=== PATIENT | female | born 2000 | race Caucasian/White ===

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

== ENCOUNTER 2020-07-27 16:58 | Emergency (ER) | payer OTHER, SELFPAY ==
[2020-07-27 17:13] VITALS: BP 110/60; PULSE 68; RESP 16; TEMP 36.6; O2SAT 94
[2020-07-27] MEDS: DEXAMETHASONE 4 MG TABLET 8 MG PO (17:33)
[2020-07-27 17:34] VITALS: PULSE 115; RESP 20; O2SAT 99
[2020-07-27] MEDS: ALBUTEROL SULFATE NEB 2.5 MG/3 ML INH 5 MG INHALATION (17:34)
--- NOTE | 2020-07-27 17:47 | ED.GENADULT ---
HPI - General Adult General Chief complaint: Unspecified Stated complaint: trouble breathing Time Seen by Provider: 07/27/20 17:25 Source: patient Mode of arrival: ambulatory Limitations: no limitations History of Present Illness HPI narrative: Patient comes in complaining of dyspnea related to her asthma. She has been mildly short of breath with a dry cough for the last 5 days. She has had no fever or chills. She has had no chest pain. She has been using her inhaler more than normal. Nothing has decreased the cough at home. no modifying factors or associated signs / symptoms. Onset (ago): day(s) Severity: moderate Quality: sharp Pain Consistency: intermittent Relieving factors: none Exacerbating factors: none Associated symptoms: denies other symptoms Treatments prior to arrival: NSAID Related Data Allergies Allergy/AdvReac Type Severity Reaction Status Date / Time Penicillins Allergy Unknown Verified 07/27/20 17:36 Review of Systems Constitutional: Constitutional: Reports no additional constitutional complaints Eyes: Eyes: Reports no additional eye complaints ENT: Reports system reviewed and no additional complaints, except as documented Cardiovascular: Cardiovascular: Reports no additional cardiovascular complaints Respiratory: Respiratory: Reports no additional respiratory complaints Gastrointestinal: Gastrointestinal: Reports no additional gastrointestinal complaints Genitourinary: Genitourinary: Reports no additional female genitourinary complaints Musculoskeletal: Musculoskeletal: Reports no additional musculoskeletal complaints Integumentary/Breasts: Skin/Breast: Reports system reviewed and no additional complaints, except as docu Neurologic: Reports system reviewed and no additional complaints, except as documented Psychiatric: Psychiatric: Reports no additional psychiatric complaints Endocrine: Endocrine: Reports no additional endocrine complaints Hematologic/Lymphatic: Hematologic/Lymphatic: Reports no additional hematologic/lymphatic complaints Allergic/Immunologic: Allergic/Immunologic: Reports no additional allergic/immunologic complaints [facility] Past Medical History Medical History Asthma Surgical History Surgical History (Updated 07/28/20 @ 03:36 by Jordan Llamas MD) No significant past surgical history Family History Family History (Updated 07/28/20 @ 03:37 by Jordan Llamas MD) Mother No significant family history Social History Social History (Updated 07/28/20 @ 03:37 by Jordan Llamas MD) Tobacco type: e-cigarettes/vaping Alcohol intake: never Substance use: never Exam Const: General: healthy appearing and no acute distress Orientation/consciousness: patient oriented x3 HENMT: Head: normal to inspection Ears: external ears normal and TM's normal bilaterally Face and sinus: normal facial exam Mouth: Yes Normal oral and palatal mucosa present Throat: posterior oropharynx normal Eyes: Conjunctivae: conjunctivae normal Neck: Neck: normal visual inspection Chest: Chest palpation & inspection: normal inspection of the chest Resp: Effort & Inspection: normal respiratory effort Auscultation: clear to auscultation bilaterally Cardio: Rate: regular rate Rhythm: regular rhythm GI: GI Palp: Yes Soft to palpation (nontender) : General: Yes no CVA tenderness Skin: General skin exam: normal color Neuro: General: patient oriented x3 and moves all extremities Extrem: General: normal to inspection Psych: Appearance: grossly normal Mental Status: mental status grossly normal Course Course Emergency Course: labs and a chest x ray were done. she was sent home with albuterol prn by nebulizer and a script for a nebulizer Vital Signs Vital signs: Vital Signs Temperature 36.6 C 07/27/20 17:13 Pulse Rate 68 07/27/20 17:13 Respiratory Rate 16 07/27/20 17:13 Blood Pressure 110/60
[2020-07-27 17:48] VITALS: PULSE 133; RESP 20; O2SAT 98
[2020-07-27 18:20] VITALS: BP 112/64; PULSE 123; RESP 20; TEMP 36.7; O2SAT 99
== END 2020-07-27 18:25 | disposition home or self-care (01) ==
PROVIDERS: Emergency Provider Emergency Medicine; PCP Physician Assistant
DX: J45.909 Unspecified asthma, uncomplicated (principal); F17.290 Nicotine dependence, other tobacco product, uncomplicated
CPT/HCPCS: 99283; J8540

== ENCOUNTER 2020-10-03 17:57 | Outpatient (CLI) | payer OTHER, SELFPAY | END 2020-10-03 17:58 | disposition home or self-care (01) | PROVIDERS: PCP Emergency Medicine; Visit Provider Emergency Medicine | DX: Z02.83 Encounter for blood-alcohol and blood-drug test (principal) | CPT/HCPCS: 99199 ==

== ENCOUNTER 2022-06-07 09:55 | Emergency (ER) | payer OTHER, SELFPAY ==
[2022-06-07 09:55] VITALS: BP 130/73; PULSE 91; RESP 18; TEMP 36.7; O2SAT 98
[2022-06-07 10:05] VITALS: BP 130/73; PULSE 91; RESP 18; TEMP 36.7; O2SAT 98
--- NOTE | 2022-06-07 10:08 | ED.URI ---
HPI - URI/Sore Throat General Chief Complaint: Upper Respiratory Infection Stated Complaint: headache/sore throat/short of breath Time Seen by Provider: 06/07/22 10:08 Source: patient Mode of arrival: ambulatory History of Present Illness HPI Narrative: 22-year-old female with a history of asthma presents to the ER with -- headache -- sore throat -- wheezing and shortness of breath -- cough she is here to get a prescription for a nebulizer machine MD elicited complaint: fever, cough and sore throat Pertinent past history: asthma Onset (ago): day(s) ( symptoms started yesterday) Able to tolerate fluids by mouth: Yes Exacerbating factors: nothing Relieving factors: nothing Associated symptoms: fever Treatments prior to arrival: none Related Data Home Medications Medication Instructions Recorded Confirmed norelgestromin 150 mcg-e.estradiol 1 patch topical WEEKLY 06/07/22 06/07/22 35 mcg/24 hr weekly transderm patch (Zafemy) Allergies Allergy/AdvReac Type Severity Reaction Status Date / Time Penicillins Allergy Unknown Verified 06/07/22 10:03 Review of Systems Review of Systems: All systems reviewed & are unremarkable except as noted in HPI and below Constitutional: Constitutional: Reports as per HPI, Reports no additional constitutional complaints and Reports fever(s) Eyes: Eyes: Reports as per HPI ENT: Reports system reviewed and no additional complaints, except as documented Cardiovascular: Cardiovascular: Reports as per HPI and Reports no additional cardiovascular complaints Respiratory: Respiratory: Reports as per HPI, Reports no additional respiratory complaints, Reports cough, Reports dyspnea and Reports wheezing Gastrointestinal: Gastrointestinal: Reports as per HPI and Reports no additional gastrointestinal complaints Genitourinary: Genitourinary: Reports no additional female genitourinary complaints and Reports as per HPI Musculoskeletal: Musculoskeletal: Reports no additional musculoskeletal complaints and Reports as per HPI Integumentary/Breasts: Skin/Breast: Reports system reviewed and no additional complaints, except as docu and Reports as per HPI Neurologic: Reports system reviewed and no additional complaints, except as documented and Reports as per HPI Psychiatric: Psychiatric: Reports no additional psychiatric complaints and Reports as per HPI Endocrine: Endocrine: Reports no additional endocrine complaints and Reports as per HPI Hematologic/Lymphatic: Hematologic/Lymphatic: Reports no additional hematologic/lymphatic complaints and Reports as per HPI Allergic/Immunologic: Allergic/Immunologic: Reports no additional allergic/immunologic complaints and Reports as per HPI PMFSH Past Medical History Medical History Asthma Surgical History Surgical History No significant past surgical history Family History Family History Mother No significant family history Social History Social History Tobacco type: e-cigarettes/vaping Alcohol intake: never Substance use: never Exam Const: General: no acute distress Nutritional Appearance: well nourished Orientation/consciousness: patient oriented x3 Limitations: no limitations HENMT: Head: normal to inspection Ears: external ears normal Face/Nose/Sinus: Normal external nose present Face and sinus: normal facial exam Mouth: Yes Normal oral and palatal mucosa present Throat: posterior oropharynx normal Eyes: Conjunctivae: conjunctivae normal Pupils: Equal, round and reactive pupils present EOM: EOMs intact bilaterally Direct Ophthalmoscopy: no photophobia Neck: Neck: normal visual inspection, no lymphadenopathy and no meningeal signs Chest: Chest palpation & inspection: normal inspection of the
== END 2022-06-07 10:35 | disposition home or self-care (01) ==
PROVIDERS: Emergency Provider Internal Medicine Critical Care Medicine
DX: J45.909 Unspecified asthma, uncomplicated (principal); J06.9 Acute upper respiratory infection, unspecified; F17.290 Nicotine dependence, other tobacco product, uncomplicated
CPT/HCPCS: 99281

== ENCOUNTER 2023-04-09 11:56 | Emergency (ER) | payer SELFPAY ==
--- NOTE | ~2023-04-09 | XR_ITS ---
XR chest 1V portable DATE: 04/09/2023 13:02 INDICATION: Cough, congestion. Positive flu. TECHNIQUE: Portable upright AP chest on 04/09/2023 1303 hours COMPARISON: None FINDINGS: Azygos lobe, normal variant. Normal heart size. No hilar or mediastinal enlargement. No pulmonary infiltrate or consolidation, pleural effusion or pulmonary vascular congestion or pneumo thorax is detected. IMPRESSION: No active cardiopulmonary disease Reviewed, dictated and finalized at location [facility] [employer]
--- NOTE | 2023-04-09 12:03 | ED.URI ---
HPI - URI/Sore Throat General Chief Complaint: Upper Respiratory Infection Stated Complaint: cold symptoms. Time Seen by Provider: 04/09/23 12:01 Source: patient Mode of arrival: ambulatory Limitations: no limitations History of Present Illness HPI Narrative: 23-year-old female with asthma presents to the ER with a 2 day history of -- headache -- cough with mucopurulent sputum -- fever -- sore throat no chest pain or shortness of breath no nausea/vomiting /abdominal pain /diarrhea. MD elicited complaint: cough Onset (ago): day(s) ( Started 2 days ago) Consistency: constant Severity: mild Able to tolerate fluids by mouth: Yes Exacerbating factors: nothing Relieving factors: nothing Associated symptoms: denies other symptoms, fever, myalgias, headache and sore throat Related Data Allergies Allergy/AdvReac Type Severity Reaction Status Date / Time Penicillins Allergy Unknown Verified 04/09/23 12:47 Review of Systems Review of Systems: All systems reviewed & are unremarkable except as noted in HPI and below Constitutional: Constitutional: Reports as per HPI, Reports no additional constitutional complaints and Reports fever(s) Eyes: Eyes: Reports as per HPI and Reports no additional eye complaints ENT: Reports system reviewed and no additional complaints, except as documented, Reports as per HPI and Reports sore throat Cardiovascular: Cardiovascular: Reports as per HPI and Reports no additional cardiovascular complaints Respiratory: Respiratory: Reports as per HPI, Reports no additional respiratory complaints and Reports cough Gastrointestinal: Gastrointestinal: Reports as per HPI and Reports no additional gastrointestinal complaints Genitourinary: Genitourinary: Reports no additional female genitourinary complaints and Reports as per HPI Musculoskeletal: Musculoskeletal: Reports no additional musculoskeletal complaints and Reports as per HPI Integumentary/Breasts: Skin/Breast: Reports system reviewed and no additional complaints, except as docu and Reports as per HPI Neurologic: Reports system reviewed and no additional complaints, except as documented and Reports as per HPI Psychiatric: Psychiatric: Reports no additional psychiatric complaints and Reports as per HPI Endocrine: Endocrine: Reports no additional endocrine complaints and Reports as per HPI Hematologic/Lymphatic: Hematologic/Lymphatic: Reports no additional hematologic/lymphatic complaints and Reports as per HPI Allergic/Immunologic: Allergic/Immunologic: Reports no additional allergic/immunologic complaints and Reports as per HPI PMFSH Past Medical History Medical History Asthma Surgical History Surgical History No significant past surgical history Family History Family History Mother No significant family history Social History Social History Tobacco type: e-cigarettes/vaping Alcohol intake: never Substance use: never Exam Const: General: no acute distress Nutritional Appearance: well nourished Orientation/consciousness: patient oriented x3 Limitations: no limitations HENMT: Head: normal to inspection Ears: external ears normal Face/Nose/Sinus: Normal external nose present Face and sinus: normal facial exam Mouth: Yes Normal oral and palatal mucosa present Throat: posterior oropharynx normal ( pharyngeal erythema) Eyes: Conjunctivae: conjunctivae normal Pupils: Equal, round and reactive pupils present EOM: EOMs intact bilaterally Direct Ophthalmoscopy: no photophobia Neck: Neck: normal visual inspection, no lymphadenopathy and no meningeal signs Chest: Chest palpation & inspection: normal inspection of the chest and abnormal inspection of the chest Resp: Effort & Inspection: normal respirato
[2023-04-09 12:20] LABS: Pregnancy On Board Control Positive; Urine Pregnancy Test Negative
[2023-04-09 12:35] LABS: Strep Group A RT-PCR NOT DETECTED (Negative)
[2023-04-09 12:43] VITALS: BP 138/86; PULSE 91; RESP 20; TEMP 36.8; O2SAT 98
[2023-04-09 12:44] LABS: SARS-CoV-2 RNA PCR Negative (Negative)
[2023-04-09 12:45] LABS: Influenza A QL RT-PCR Negative (Negative); Influenza B QL RT-PCR Positive (Negative); RSV RNA, RT-PCR Negative (Negative)
[2023-04-09 12:46] VITALS: O2SAT 98
[2023-04-09] MEDS: KETOROLAC 30 MG/ML VIAL (*BKC) IM (12:56)
[2023-04-09 13:57] VITALS: BP 119/77; PULSE 96; RESP 20; TEMP 37.1; O2SAT 98
== END 2023-04-09 14:02 | disposition home or self-care (01) ==
PROVIDERS: Emergency Provider Internal Medicine Critical Care Medicine
DX: J10.1 Influenza due to other identified influenza virus with other respiratory manifestations (principal); F17.290 Nicotine dependence, other tobacco product, uncomplicated; Z20.822 Contact with and (suspected) exposure to COVID-19
CPT/HCPCS: 71045; 81025; 87637; 87651; 96372; 99283; J1885